=== PATIENT | female | born 1945 | race Hispanic/Latino ===

== ENCOUNTER 2020-01-31 05:16 | Observation (INO) | payer MEDICARE, OTHER ==
[2020-01-25 15:49] LABS: BASOPHILS % 0.5 % (0.0-1.0); EOSINOPHILS # (AUTO) 0.2 (0.0-0.4); EOSINOPHILS % 3.2 % (0.0-6.0); HEMATOCRIT 38.1 % (34.2-44.1); HEMOGLOBIN 12.8 g/dL (12.0-16.0); LYMPHOCYTES # (AUTO) 2.3 (1.0-3.2); LYMPHOCYTES % 39.2 % (18.0-39.1); MEAN CORPUSCULAR HEMOGLOBIN 30.3 pg (28-32); MEAN CORPUSCULAR HGB CONC 33.6 g/dL (31-35); MEAN CORPUSCULAR VOLUME 90.3 fL (81-99); MONOCYTES # (AUTO) 0.4 (0.2-0.8); MONOCYTES % 6.8 % (4.4-11.3); NEUTROPHILS # (AUTO) 2.9 (2.1-6.9); NEUTROPHILS % 49.8 % (38.7-80.0); PLATELET COUNT 296 x10e3/uL (140-360); RED BLOOD COUNT 4.22 x10e6/uL (3.6-5.1); RED CELL DISTRIBUTION WIDTH 13.3 % (11.7-14.4)
[2020-01-25 15:59] LABS: INR 0.94
[2020-01-25 16:03] LABS: ANION GAP 13.6 mmol/L (8-16); CALCIUM 9.1 mg/dL (8.4-10.2); CREATININE, SERUM 1.36 mg/dL (0.57-1.11); POTASSIUM 3.6 mmol/L (3.5-5.1)
--- NOTE | 2020-01-25 16:24 | Diagnostic Imaging Report ---
EXAMINATION: CHEST 2 VIEWS INDICATION: Pre-operative COMPARISON: None FINDINGS: LINES/TUBES:None LUNGS:The lungs are well-inflated. No focal consolidation or pulmonary edema. PLEURA:No pleural effusion or pneumothorax. MEDIASTINUM:The cardiomediastinal silhouette appears normal in size and shape. There is calcification of the coronary arteries, consistent with atherosclerotic disease. Chest BONES/SOFT TISSUES:No acute osseous injury. Surgical clips in the right neck soft tissues. ABDOMEN:No free air under the diaphragm. IMPRESSION: No focal pneumonia or pulmonary edema. Signed by: Pablo Amaya MD on 01/25/2020 4:21 PM
[~2020-01-31] VITALS: Ht 160 cm; Wt 68.0 kg
[~2020-01-31 05:16] MED LIST: ENALAPRIL MALE2.5 MG PO; IBUPROFEN200 MG PO; LEVOTHYROXINE50 MCG PO; PROPRANOLOL HCL10 MG PO
[2020-01-31] MEDS ORDERED: THROMBIN FOR SOLN 5,000 UNIT VIAL ONE (06:09)
[2020-01-31] MEDS ORDERED: BUPIVACAINE 0.5%/EPI 30 ML SDV INJ ONE (06:09)
[2020-01-31] MEDS ORDERED: BACITRACIN 50,000 UNIT VIAL ONE (06:09)
[2020-01-31] MEDS ORDERED: CEFAZOLIN SOD 1 GM/NS 50ML 100 ML IV ONE (07:32)
[2020-01-31] MEDS ORDERED: SUGAMMADEX SODIUM 200 MG/2 ML VIAL IV ONE (08:25)
[2020-01-31] MEDS ORDERED: CARISOPRODOL 350 MG TAB PO PRN (08:45)
[2020-01-31] MEDS ORDERED: ACETAMINOPHEN 325 MG TAB PO PRN (08:45)
[2020-01-31] MEDS ORDERED: ONDANSETRON HCL INJ 2MG/ML 2ML 2 MG/ML VIAL IV PRN (08:45)
[2020-01-31] MEDS ORDERED: OXYCODONE/ACETAMINOPHEN 5-325 1 EACH TABLET PO PRN (08:45)
[2020-01-31] MEDS ORDERED: MAGNESIUM/ALUMINUM/SIMETHICONE 30 ML UDC PO PRN (08:45)
[2020-01-31] MEDS ORDERED: HYDROMORPHONE 2MG/ML 2 MG/ML ML IV PRN (08:45)
[2020-01-31] MEDS ORDERED: MORPHINE SULFATE 5 MG/ML VIAL IM PRN (08:45)
[2020-01-31] MEDS ORDERED: PROMETHAZINE HCL (IM) 25 MG/ML VIAL IM PRN (08:45)
--- NOTE | 2020-01-31 09:34 | Operative Report ---
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 PROCEDURE: Left L5-S1 laminotomy, medial facetectomy, and microsurgical resection of intraspinal synovial cyst, [id number]. ANESTHESIA: General. INDICATIONS: The patient is a 74-year-old woman, who presents with an intraspinal extradural mass on the left side of the spinal canal at L5-S1, consistent with a large synovial cyst producing severe left S1 radiculopathy and unilateral neurogenic claudication. She was taken for surgery for microsurgical resection of this lesion. PROCEDURE IN DETAIL: After induction of anesthesia, the patient was placed on the operating table in prone position over Maco frame. The lumbar region was prepped and draped in sterile fashion. A preoperative x-ray was obtained. A small midline incision was created overlying the L5-S1 segment. The lumbar fascia was opened in left of midline and a subperiosteal dissection was carried out to expose the left side of L5 and S1 lamina and the medial aspect of the L5-S1 facet joint and second x-ray confirmed correct localization. The operating microscope was brought in. A high-speed drill equipped with jasbir bur was used to drill the inferior aspect of the lamina of L5 and the superior aspect of lamina of S1 and the medial rim of the L5-S1 hypertrophic facet joint. The ligamentum flavum was resected and the dural sac came into view. The synovial cyst came into view attached to the dura in a posterolateral location covering and compressing the S1 nerve root. The plane of dissection was carefully developed under microscope with microsurgical technique between the synovial cyst and the dura starting superiorly and inferiorly and then the synovial cyst was carefully peeled off the dura and resected in a piecemeal fashion along with its overlying ligamentum flavum until the S1 nerve root was fully exposed and decompressed. Meticulous hemostasis was secured and retraction was removed. A piece of fat was harvested from the subcutaneous space and placed over the dura. The wound was closed in multiple layers with 0 and 2-0 Vicryl sutures. The skin was closed with 3-0 Monocryl sutures in subcuticular fashion. Steri-Strips and dressings were applied. The patient was awakened, extubated, and taken to postanesthesia care unit in stable condition. No intraoperative complications were encountered. ESTIMATED BLOOD LOSS: 10 mL. Nash Kevin MD PP/ZOHRA /[id number]
[2020-01-31] MEDS ORDERED: HYDROMORPHONE 1MG/1ML INJ ONE (11:21)
[2020-01-31 11:48] VITALS: BP 147/89
[2020-01-31 11:54] VITALS: BP 147/89
[2020-01-31 11:55] VITALS: BP 147/89
--- NOTE | 2020-01-31 12:01 | NUR ---
patient received from PACU via stretcher. see admit assess. dressing to lower back dry and intact. room air. pain at level 4. vitals stable with no distress.
[2020-01-31] MEDS: LEVOTHYROXINE SODIUM 50 MCG TAB PO SCH (12:10)
[2020-01-31] MEDS: PROPRANOLOL HCL 10 MG TAB PO SCH (12:10)
[2020-01-31] MEDS: LACTATED RINGER'S 1,000 ML IV SCH ×2 (12:10→17:05)
[2020-01-31] MEDS ORDERED: EPHEDRINE SULFATE INJ 50 MG/ML VIAL ONE (14:02)
[2020-01-31 16:00] VITALS: BP 136/79
[2020-01-31] MEDS: CEFAZOLIN SOD 1 GM/NS 50ML 50 ML IV SCH (17:18)
[2020-01-31] MEDS ORDERED: SEVOFLURANE INHAL SOLN 250 ML PEN BTL ONE (17:41)
[2020-01-31] MEDS ORDERED: LIDOCAINE HCL 2% LOCAL INJ 5 ML SDV VIAL INJ ONE (17:41)
[2020-01-31] MEDS ORDERED: DEXAMETHASONE SOD PHOS INJ 4 MG/ML VIAL ONE (17:41)
[2020-01-31] MEDS ORDERED: PROPOFOL IV EMULSION 10 MG/ML 20 ML VIAL ONE (17:41)
[2020-01-31] MEDS ORDERED: ROCURONIUM BROMIDE 10 MG/ML 5ML VIAL IV ONE (17:41)
[2020-01-31] MEDS ORDERED: ONDANSETRON HCL INJ 2MG/ML 2ML 2 MG/ML VIAL ONE (17:41)
[2020-01-31 20:00] VITALS: BP 143/76
[2020-01-31 21:00] VITALS: BP 143/76
[2020-01-31] MEDS ORDERED: ZOLPIDEM TARTRATE 5 MG TAB PO PRN (21:00)
--- NOTE | 2020-01-31 21:00 | NUR ---
PATIENT RESTING IN BED IN STABLE CONDITION, NO SIGNS OF DISTRESS NOTED. HEAD OF BED IS ELEVATED AND PATIENT VOICES NO PAIN AT THIS TIME. PATIENT INSTRUCTED TO USE CALL LIGHT FOR ASSISTANCE. BED IS IN LOW POSITION, BOTH SIDE RAILS ARE UP, CALL LIGHT IS WITHIN EASY REACH, WILL CONTINUE TO MONITOR.
[2020-02-01] VITALS: BP 163/79
[2020-02-01] MEDS: CEFAZOLIN SOD 1 GM/NS 50ML 50 ML IV SCH ×2 (00:14→08:55)
[2020-02-01] MEDS: LACTATED RINGER'S 1,000 ML IV SCH ×2 (01:12→07:12)
[2020-02-01 04:00] VITALS: BP 129/80
[2020-02-01] MEDS: LEVOTHYROXINE SODIUM 50 MCG TAB PO SCH (05:58)
--- NOTE | 2020-02-01 07:00 | NUR ---
BEDSIDE ROUNDS COMPLETED NO DISTRESS NOTED, UPDATED ON POC VOICED UNDERSTANDING, DSG TO LOWER BACK C/D/I, R HAND 20G NO SS OF INFILTRATION NOTED, NO OTHER CO VOICED DENIES PAIN AT [facility] TIME WILL CONTINUE TO MONITOR
[2020-02-01 08:20] VITALS: BP 151/77
[2020-02-01 08:41] VITALS: BP 151/77
[2020-02-01] MEDS: PROPRANOLOL HCL 10 MG TAB PO SCH ×2 (08:55→09:00)
[2020-02-01 12:24] VITALS: BP 104/53
== END 2020-02-01 15:55 | disposition home or self-care (01) ==
LOC: OR 05:16 → PACU V 08:43 → MED/SURG 11:36
PROVIDERS: ADMIT Neurological Surgery; ATTEND Neurological Surgery
DX: M71.38 Other bursal cyst, other site (principal); M48.062 Spinal stenosis, lumbar region with neurogenic claudication; I10 Essential (primary) hypertension; E03.9 Hypothyroidism, unspecified; K57.91 Diverticulosis of intestine, part unspecified, without perforation or abscess with bleeding; Z01.810 Encounter for preprocedural cardiovascular examination; Z01.812 Encounter for preprocedural laboratory examination; Z01.818 Encounter for other preprocedural examination; Z11.59 Encounter for screening for other viral diseases; Z86.73 Personal history of transient ischemic attack (TIA), and cerebral infarction without residual deficits; Z90.49 Acquired absence of other specified parts of digestive tract
CPT/HCPCS: 36415; 63267; 71046; 72020; 80048; 85025; 85610; 85730; 88304; 93005; G0378 ×2; J0690 ×2; J1100; J1170; J2001; J2405; J2704; J7121; U0002